=== PATIENT | female | born 1970 | race African-American/Black ===

== ENCOUNTER 2018-11-17 14:29 | Emergency (ER) | payer SELFPAY ==
[~2018-11-17] VITALS: Ht 170.2 cm; Wt 234.0 kg
[2018-11-17 15:32] VITALS: BP 153/96
== END 2018-11-17 16:50 | disposition home or self-care (01) ==
LOC: ER 14:29
DX: S60.561A Insect bite (nonvenomous) of right hand, initial encounter (principal); L03.113 Cellulitis of right upper limb; W57.XXXA Bitten or stung by nonvenomous insect and other nonvenomous arthropods, initial encounter; Y93.89 Activity, other specified; Y92.89 Other specified places as the place of occurrence of the external cause; Y99.8 Other external cause status
CPT/HCPCS: 99283